=== PATIENT | female | born 1970 | race Caucasian/White ===

== ENCOUNTER 2020-07-20 08:45 | Outpatient (CLI) | payer BC, SELFPAY ==
[2020-07-20 08:58] VITALS: BMI 35.0
--- NOTE | 2020-07-20 09:03 | ECG_ITS ---
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 Interpretive Statements NAME OF STUDY: EXERCISE SESTAMIBI STRESS TEST INDICATION: Chest Pain Baseline blood pressure of 113/72 mm Hg, heart rate 69 beats per minute and oxygen saturation of 98%. EKG showed normal sinus rhythm, possible old anteroseptal infarct. The patient exercised for 8 minutes 3 seconds on a standard Pedro protocol. Patient attained a maximum heart rate of 162 beats per minute(94% of the maximum predicted heart rate) with a blood pressure at the peak exercise of 168/61 mm Hg and oxygen saturation 97%. The EKG at the peak exercise revealed sinus tachycardia with no significant ST-T wave changes. T wave become upright in V2 to V3 during exercise and become inverted in recovery patient did not have any chest pain or any significant arrhythmis with the exercise During the recovery phase, there were no new changes. Blood pressure at the end of the recovery phase was 120/75 mm Hg with a heart rate of 81 beats per minute and oxygen saturation 97%. CONCLUSION: 1. Normal EKG response to treadmill exercise. 2. No exercise-induced chest pain or cardiac arrhythmia 3. Good exercise tolerance, attained a maximum of 10.2 METs. Maximum VO2 of 35.7 mL/kg/min. 4. Baseline normal blood pressure with normal response to exercise. 5. Perfusion scan will be documented separately. Electronically Signed On 07-22-2020 13:43:11 PHOTOGRAPHER'S ASSISTANT by Sharda Rueda M.D. [id number]
--- NOTE | 2020-07-20 09:03 | NMCV_ITS ---
NM nae perf SPECT r/s* [id number] Tory Conner Age: 50 Gender: F : 1970 Exam Date: 07/20/2020 10:05 Ordering Phys: Cate Mosley Technologist: ANT Warren Exam Location: [facility] Indications: CHEST PAIN STRESS TEST Please see separate stress test report in [facility] for full findings IMAGE PROTOCOL Rest/Stress 1 Exercise Day Radiopharmaceutical Dose (mCi) Administration Site Administered by Rest: Tc-99m 10.6 IV ANT Warren Sestamibi Stress:Tc-99m 32.9 IV ANT Martinez Sestamibi Rest: 07/20/2020 60 Discovery 630 Stress: 07/20/2020 30 Discovery 630 Radiopharmaceutical was injected at 87 % maximum heart rate. Images obtained in supine and prone position. SPECT RESULTS Technical Quality: Excellent Raw Data Analysis: Normal Image Corrections: No attenuation or motion correction applied Summed Stress Score: 0 Summed Rest Score: 0 Summed Difference Score: 0 PERFUSION FINDINGS Very small size perfusion abnormality of mild severity of apical left. And apical lateral wall on rest images with improved tracer uptake on stress images. This is suggestive of attenuation artifact. FUNCTIONAL RESULTS (calculated via Gated SPECT) Stress Image LV EF (%): 74 Stress EDV (mL):84 TID: 0.98 Stress ESV (mL):22 FUNCTIONAL FINDINGS: The left ventricle is normal in size. Transient Ischemia Dilatation of 0.98. There is normal left ventricular systolic function. The left ventricular ejection fraction is normal with a value of 74%. There is normal left ventricular wall thickening. Normal end-diastolic and end-systolic volumes. IMPRESSIONS 1. Myocardial perfusion imaging is normal. 2. Overall left ventricular systolic function is normal without regional wall motion abnormalities. 3. The left ventricular ejection fraction is normal with a value of 74%. 4. There is normal left ventricular wall thickening. 5. Scan indicates low risk for cardiac events. Sharda Rueda MD (Electronically Signed) Final Date: 22 July 2020 13:32 S
--- NOTE | 2020-07-20 10:44 | SUR.PREOP ---
Patient reports no pain or discomfort prior to the start of the procedure.
[2020-07-20 11:07] VITALS: BP 122/75; PULSE 83
== END 2020-07-20 08:46 | disposition home or self-care (01) ==
LOC: CDL 08:48
PROVIDERS: PCP Nurse Practitioner Family; Visit Provider Nurse Practitioner Family
DX: R07.9 Chest pain, unspecified (principal)
CPT/HCPCS: 78452; 93017; A9500

== ENCOUNTER → 2021-04-06 09:37 | Outpatient (BNVA) | payer BC, SELFPAY | PROVIDERS: PCP Nurse Practitioner Family; Visit Provider Surgery | DX: Z20.822 Contact with and (suspected) exposure to COVID-19 (principal) | CPT/HCPCS: 87635 ==

== ENCOUNTER 2021-04-12 07:05 | Day surgery (SDC) | payer BC, SELFPAY ==
--- NOTE | 2021-04-12 07:49 | ANES.PREANE2 ---
Pre-Anesthetic Assessment Pre-Anesthetic Assessment: Height/Weight: Height 1.63 m Preop Diagnosis: screening colonoscopy Proposed Procedure: Operation Date: 04/12/21 09:00 Proposed Procedures p Colonoscopy 95346 Z12.11(Not Applicable) - Eric Minor MD Was Beta Amaris taken within 24 hours: N/A Was Clonidine taken within 24 hours: N/A Social: Social History: Tobacco and No alcohol Exam: Pre-Anes Outpt Exam: alert, oriented x 3 and regular rate & rhythm Airway: Submandibular: WNL Cervical ROM: WNL MP: 2 Dentition: Chipped Pulmonary: Pulmonary: COPD Metabolic: Metabolic: Morbid obesity and Thyroid Anesthetic Plan: ASA status: 2 Anesthesia: MAC Risk of > 500 ml blood loss (7ml/kg in children): No PFSH Anesthesia PFSH: Medical History (Updated 02/02/21 @ 10:34 by Eric Minor MD) Endometriosis HLD (hyperlipidemia) Hypothyroidism Surgical History (Updated 02/02/21 @ 10:27 by Eric Minor MD) Hx of section Hx of cholecystectomy S/P NAGI-BSO Family History (Updated 02/02/21 @ 10:21 by Ria Delgado) Other Cancer Diabetes Psychiatric illness Denies family history of CAD (coronary artery disease) Dementia Chronic kidney disease (CKD) Lung disease Stroke Social History (Updated 02/02/21 @ 10:21 by Ria Delgado) Smoking and tobacco status: current every day smoker Alcohol intake: never Lives independently: Yes Household members: spouse and children Marital status: Data Anesthesia Cardiac Studies: No Data to Display
[2021-04-12 07:53] VITALS: BP 134/77; PULSE 72; RESP 16; TEMP 36.4; O2SAT 97
--- NOTE | 2021-04-12 07:56 | P.HP_ITS ---
Same Day Surgery H&P Indication for Procedure/HPI DATE OF PROCEDURE: April 12, 2021 CHIEF COMPLAINT/INDICATIONFOR SURGICAL PROCEDURE: screening colonosoopy PREOP DIAGNOSIS: screening colonoscopy PLANNED PROCEDRUE: Operation Date: 04/12/21 09:00 Proposed Procedures p Colonoscopy 78623 Z12.11(Not Applicable) - Eric Minor MD Medications/Allergies* Home Medications Medication Instructions Recorded Confirmed Type cholecalciferol (vitamin D3) 10 10 mcg PO DAILY 02/02/21 02/02/21 History mcg (400 unit) capsule levothyroxine 50 mcg tablet 50 mcg PO DAILY 02/02/21 02/02/21 History turmeric 400 mg capsule mg PO 02/02/21 02/02/21 History Allergies/Adverse Reactions Allergy/AdvReac Type Severity Reaction Status Date / Time erythromycin base Allergy Unknown Verified 02/02/21 10:17 [From E-Mycin] Penicillins Allergy Unknown Verified 02/02/21 10:17 Sulfa (Sulfonamide Allergy Unknown Verified 02/02/21 10:17 Antibiotics) Pertinent History/Comorbid Conditions* Medical History (Updated 02/02/21 @ 10:34 by Eric Minor MD) Endometriosis HLD (hyperlipidemia) Hypothyroidism Surgical History (Updated 02/02/21 @ 10:27 by Eric Minor MD) Hx of section Hx of cholecystectomy S/P NAGI-BSO Family History (Updated 02/02/21 @ 10:21 by Ria Delgado) Diabetes Psychiatric illness Cancer Denies family history of CAD (coronary artery disease) Dementia Chronic kidney disease (CKD) Lung disease Stroke Social History Smoking and tobacco status: current every day smoker Alcohol intake: never Lives independently: Yes Household members: spouse and children Marital status: Pertinent Exam Findings alert, oriented x 3 and regular rate & rhythm Recommendations Surgery/Procedure today Coding Level of Care Code 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
[2021-04-12 07:57] VITALS: BMI 36.0
[2021-04-12] MEDS: sodium chloride 0.9% 1,000 ML 30 ML IV (08:04)
[2021-04-12 08:36] VITALS: BP 112/69; PULSE 65; RESP 16; TEMP 36.1; O2SAT 94
[2021-04-12 08:48] VITALS: BP 103/71; PULSE 67; RESP 18; O2SAT 97
--- NOTE | 2021-04-12 15:52 | ANE.PACU2 ---
Inpatient post-anesthesia follow up: Airway intact: Yes Vital signs: Temperature 97.0 F Pulse Rate 67 Respiratory Rate 18 Blood Pressure 103/71 Pulse Oximetry 97 Oxygen Delivery Me thod Room Air Oxygen Flow Rate Fraction of Inspir ed Oxygen Hydration adequate: Yes Nausea and vomiting: No Pain level: 1 Mental status: Baseline
== END 2021-04-12 08:59 | disposition home or self-care (01) ==
PROVIDERS: PCP Nurse Practitioner Family; Visit Provider Surgery
PROC: 0DJD8ZZ Inspection of Lower Intestinal Tract, Via Natural or Artificial Opening Endoscopic (ICD-10-PCS; CPT 45378; principal; 2021-04-12 09:00)
DX: Z12.11 Encounter for screening for malignant neoplasm of colon (principal); K57.30 Diverticulosis of large intestine without perforation or abscess without bleeding; K63.5 Polyp of colon; E78.5 Hyperlipidemia, unspecified; E03.9 Hypothyroidism, unspecified; Z82.49 Family history of ischemic heart disease and other diseases of the circulatory system; Z83.3 Family history of diabetes mellitus; F17.210 Nicotine dependence, cigarettes, uncomplicated
CPT/HCPCS: 45380; 88305; 96360; J2704; J7030

== ENCOUNTER → 2021-06-01 11:34 | Outpatient (BNVA) | payer BC, SELFPAY | PROVIDERS: PCP Nurse Practitioner Family; Visit Provider Nurse Practitioner Family | DX: M79.671 Pain in right foot (principal) | CPT/HCPCS: 73630; 81003; 87086 ==

== ENCOUNTER → 2021-07-05 15:14 | Outpatient (BNVA) | payer BC, SELFPAY | PROVIDERS: PCP Nurse Practitioner Family; Visit Provider Nurse Practitioner Family | DX: N39.0 Urinary tract infection, site not specified (principal) | CPT/HCPCS: 81003 ==

== ENCOUNTER → 2021-07-08 15:30 | Outpatient (BNVA) | payer BC, SELFPAY | PROVIDERS: PCP Nurse Practitioner Family; Referring Provider Nurse Practitioner Family; Visit Provider Podiatrist Foot & Ankle Surgery | DX: M79.671 Pain in right foot (principal); M79.672 Pain in left foot; M19.072 Primary osteoarthritis, left ankle and foot; M19.071 Primary osteoarthritis, right ankle and foot | CPT/HCPCS: 73630 ==

== ENCOUNTER → 2022-06-03 10:55 | Outpatient (BNVA) | payer BC, SELFPAY | PROVIDERS: PCP Nurse Practitioner; Visit Provider Nurse Practitioner | DX: Z00.8 Encounter for other general examination (principal); E55.9 Vitamin D deficiency, unspecified; E78.5 Hyperlipidemia, unspecified; E03.9 Hypothyroidism, unspecified; Z79.899 Other long term (current) drug therapy; E66.9 Obesity, unspecified | CPT/HCPCS: 80053; 80061; 82306; 83036; 84443; 85025 ==

== ENCOUNTER → 2023-10-30 08:09 | Outpatient (BNVA) | payer BC, SELFPAY | PROVIDERS: PCP Nurse Practitioner Family; Visit Provider Nurse Practitioner Family | DX: E03.9 Hypothyroidism, unspecified (principal); E78.5 Hyperlipidemia, unspecified; Z79.899 Other long term (current) drug therapy; D64.9 Anemia, unspecified; Z13.6 Encounter for screening for cardiovascular disorders | CPT/HCPCS: 80053; 80061; 81003; 82306; 82607; 82728; 82746; 83036; 83550; 84443; 85025 ==

== ENCOUNTER → 2023-11-01 08:52 | Outpatient (BNVA) | payer BC, SELFPAY | PROVIDERS: PCP Nurse Practitioner Family; Visit Provider Nurse Practitioner Family | DX: E03.9 Hypothyroidism, unspecified (principal); E78.5 Hyperlipidemia, unspecified; Z79.899 Other long term (current) drug therapy; D64.9 Anemia, unspecified; E03.8 Other specified hypothyroidism | CPT/HCPCS: 80053; 81003; 83735 ==

== ENCOUNTER → 2023-11-21 08:31 | Outpatient (BNVA) | payer BC, SELFPAY | PROVIDERS: PCP Nurse Practitioner Family; Visit Provider Nurse Practitioner Family | DX: E87.5 Hyperkalemia (principal); D51.9 Vitamin B12 deficiency anemia, unspecified | CPT/HCPCS: 80053; 82607 ==

== ENCOUNTER 2024-01-31 13:18 | Outpatient (CLI) | payer BC, SELFPAY ==
--- NOTE | 2024-01-31 13:40 | MM_ITS ---
WS: [id number] BILATERAL 3D TOMOSYNTHESIS DIGITAL SCREENING MAMMOGRAPHY WITH CAD CLINICAL INFORMATION: SCREENING HISTORY: Screening mammogram. No current complaints. COMPARISON: 2020 TECHNIQUE: Bilateral CC and MLO views. FINDINGS: Scattered fibroglandular densities bilaterally. No suspicious focal mass, asymmetry, calcifications, or architectural distortion. No evidence of malignancy. A few incidental punctate calcifications. MM/[place] [id number] IMPRESSION: BI-RADS: 2-Benign FOLLOW UP: 1 Year Follow-up Recommend return to annual screening mammography.
== END 2024-01-31 13:19 | disposition home or self-care (01) ==
PROVIDERS: PCP Nurse Practitioner Family; Visit Provider Nurse Practitioner Family
DX: Z12.31 Encounter for screening mammogram for malignant neoplasm of breast (principal)
CPT/HCPCS: 77063; 77067

== ENCOUNTER → 2024-07-17 08:42 | Outpatient (BNVA) | payer BC, SELFPAY | PROVIDERS: PCP Nurse Practitioner Family; Visit Provider Nurse Practitioner Family | DX: E78.5 Hyperlipidemia, unspecified (principal); E03.8 Other specified hypothyroidism; D64.9 Anemia, unspecified; D51.9 Vitamin B12 deficiency anemia, unspecified | CPT/HCPCS: 80053; 80061; 81000; 82607; 84443; 85025 ==

== ENCOUNTER → 2025-04-14 08:37 | Outpatient (BNVA) | payer BC, SELFPAY | PROVIDERS: PCP Nurse Practitioner Family; Visit Provider Nurse Practitioner Family | DX: D51.9 Vitamin B12 deficiency anemia, unspecified (principal); D64.89 Other specified anemias; E03.8 Other specified hypothyroidism; E55.9 Vitamin D deficiency, unspecified; F41.9 Anxiety disorder, unspecified; F32.A Depression, unspecified; Z79.899 Other long term (current) drug therapy | CPT/HCPCS: 80053; 80061; 81003; 82306; 82607; 82728; 82746; 83036; 83550; 84439; 84443; 85025; 86038; 86200; 86431 ==

== ENCOUNTER → 2025-04-18 10:34 | Outpatient (BNVA) | payer BC, SELFPAY | PROVIDERS: PCP Nurse Practitioner Family; Visit Provider Nurse Practitioner Family | DX: N30.01 Acute cystitis with hematuria (principal); R39.89 Other symptoms and signs involving the genitourinary system | CPT/HCPCS: 81003; 87086 ==

== ENCOUNTER 2025-04-30 08:53 | Outpatient (CLI) | payer BC, SELFPAY ==
--- NOTE | 2025-04-30 09:00 | MM_ITS ---
WS: [id number] SCREENING DIGITAL BREAST TOMOSYNTHESIS MAMMOGRAM WITH CAD HISTORY: SCREENING COMPARISON: 01/31/2024, 02/02/2021, 09/04/2018 Bilateral CC and MLO with tomosynthesis and synthetic mammography submitted. Computer aided detection analyzed. Breast composition: There are scattered areas of fibroglandular density. There is a new mass measuring 2 x 2 x 2 mm mid depth RIGHT breast at 10:00. The remaining calcifications and asymmetries are stable. No distortion. MM/MM scr BI tomosynthesis [id number] IMPRESSION: BI-RADS: 0 - Incomplete: Need additional imaging evaluation. FOLLOW UP: Need Additional Imaging RIGHT breast: Spot compression views (CC and MLO). True ML. Ultrasound to follo w if abnormality persists.
== END 2025-04-30 08:54 | disposition home or self-care (01) ==
LOC: MOBLMAM 08:54
PROVIDERS: PCP Nurse Practitioner Family; Visit Provider Nurse Practitioner Family
DX: Z12.31 Encounter for screening mammogram for malignant neoplasm of breast (principal); R92.323 Mammographic fibroglandular density, bilateral breasts; R92.1 Mammographic calcification found on diagnostic imaging of breast; N64.89 Other specified disorders of breast; N63.12 Unspecified lump in the right breast, upper inner quadrant
CPT/HCPCS: 77063; 77067

== ENCOUNTER 2025-05-13 08:47 | Outpatient (CLI) | payer BC, SELFPAY ==
--- NOTE | 2025-05-13 08:55 | MM_ITS ---
WS: [id number] ADDITIONAL VIEWS RIGHT MAMMOGRAM WITH DIGITAL BREAST TOMOSYNTHESIS. RIGHT BREAST ULTRASOUND HISTORY: ABNORMAL MAMMO COMPARISON: 04/30/2025, 01/31/2024, 02/02/2021 RIGHT MAMMOGRAM: Spot compression views and true ML with digital breast tomosynthesis and SM. Breast composition: There are scattered areas of fibroglandular density. Previously described new mass persists measuring 3 x 3 x 3 mm in the posterior RIGHT breast at 12:00. This mass is just above the nipple line. Benign calcifications otherwise. RIGHT BREAST ULTRASOUND 2-D and color Doppler imaging submitted. The mass in the RIGHT breast near 12:00 is not identified by ultrasound. MM/MM diag RT tomosynthesis [id number] IMPRESSION: BI-RADS: 3 - Probably Benign. FOLLOW UP: 6 Month Follow-up 6-month RIGHT breast diagnostic mammogram and possible ultrasound to follow to reevaluate the 3 mm mass.
--- NOTE | 2025-05-13 09:30 | US_ITS ---
WS: [id number] ADDITIONAL VIEWS RIGHT MAMMOGRAM WITH DIGITAL BREAST TOMOSYNTHESIS. RIGHT BREAST ULTRASOUND HISTORY: ABNORMAL MAMMO COMPARISON: 04/30/2025, 01/31/2024, 02/02/2021 RIGHT MAMMOGRAM: Spot compression views and true ML with digital breast tomosynthesis and SM. Breast composition: There are scattered areas of fibroglandular density. Previously described new mass persists measuring 3 x 3 x 3 mm in the posterior RIGHT breast at 12:00. This mass is just above the nipple line. Benign calcifications otherwise. RIGHT BREAST ULTRASOUND 2-D and color Doppler imaging submitted. The mass in the RIGHT breast near 12:00 is not identified by ultrasound. US/US breast RT limited* [id number] IMPRESSION: BI-RADS: 3 - Probably Benign. FOLLOW UP: 6 Month Follow-up 6-month RIGHT breast diagnostic mammogram and possible ultrasound to follow to reevaluate the 3 mm mass.
== END 2025-05-13 08:48 | disposition home or self-care (01) ==
LOC: RAD 08:48
PROVIDERS: PCP Nurse Practitioner Family; Visit Provider Nurse Practitioner Family
DX: R92.8 Other abnormal and inconclusive findings on diagnostic imaging of breast (principal); R92.323 Mammographic fibroglandular density, bilateral breasts; R92.1 Mammographic calcification found on diagnostic imaging of breast; N63.15 Unspecified lump in the right breast, overlapping quadrants
CPT/HCPCS: 76642; 77061; G0279